=== PATIENT | female | born 2000 ===

== ENCOUNTER → 2022-12-09 | Outpatient (CLI) | payer OTHER | END | disposition home or self-care (01) | LOC: LAB 11:55 → LAB SHORT 11:55 | DX: Z34.03 Encounter for supervision of normal first pregnancy, third trimester (principal) | CPT/HCPCS: 87081; 87150 ==

== ENCOUNTER → 2022-12-26 | Outpatient (CLI) | payer OTHER ==
[2022-12-26 18:46] LABS: Protein, Urine Random <5.0 mg/dL (0.0-11.9); Protein/Creat Ratio, Ur Random Unable to Calculate
== END | disposition home or self-care (01) ==
LOC: LAB 14:58 → LAB SHORT 14:58
PROVIDERS: Family Medicine
DX: R03.0 Elevated blood-pressure reading, without diagnosis of hypertension (principal)
CPT/HCPCS: 82570; 84156

== ENCOUNTER 2023-01-03 14:58 | Inpatient (IN) | payer OTHER ==
[2023-01-03] VITALS (14 sets, daily range): BP systolic 123–156; BP diastolic 62–96
[~2023-01-03] VITALS: Ht 149.9 cm; Wt 72.8 kg
[2023-01-03 16:24] LABS: BASOPHILS ABSOLUTE AUTO 0.05 K/mm3 (0.00-0.23); BASOPHILS PERCENT AUTO 1 % (0-2); EOSINOPHILS ABSOLUTE AUTO 0.01 K/mm3 (0.00-0.68); EOSINOPHILS PERCENT AUTO 0 % (0-6); Hematocrit 31.4 % (33.0-51.0); Hemoglobin 10.2 g/dL (11.5-16.0); IMMATURE GRAN ABSOLUTE AUTO 0.02 K/mm3 (0.00-0.10); IMMATURE GRAN PERCENT AUTO 0 % (0-1); LYMPHOCYTES ABSOLUTE AUTO 1.72 K/mm3 (0.84-5.20); LYMPHOCYTES PERCENT AUTO 22 % (21-46); MONOCYTES ABSOLUTE AUTO 0.65 K/mm3 (0.16-1.47); MONOCYTES PERCENT AUTO 8 % (4-13); Mean Corpuscular HGB 26.8 pg (26.0-34.0); Mean Corpuscular HGB Conc 32.5 g/dL (31.5-36.5); Mean Corpuscular Volume 83 fL (80-100); Mean Platelet Volume 11.3 fL (9.1-12.4); NEUTROPHILS PERCENT AUTO 69 % (41-73); Platelet Count 151 K/mm3 (150-400); RDW Coefficient Variation 13.8 % (11.7-14.2); RDW Standard Deviation 40.5 fL (35.1-46.3); White Blood Cell Count 7.95 K/mm3 (4.00-11.30)
[2023-01-03] MEDS ORDERED: PRENATAL TABLE1 EAC2 PO (16:30)
[2023-01-03 16:35] LABS: Creatinine, Urine Random 45.9 mg/dL (27.00-270.00); Protein, Urine Random 39.1 mg/dL (0.0-11.9); Protein/Creat Ratio, Ur Random 0.9
[2023-01-03 16:53] LABS: Albumin, Blood 2.4 g/dL (3.4-5.0); Albumin/Globulin Ratio 0.6 (0.8-1.8); Bilirubin, Total 0.2 mg/dL (0.1-1.0); Bun/Creatinine Ratio 18.7 (12.0-20.0); Calcium, Blood 8.9 mg/dL (8.5-10.1); Creatinine, Blood 0.75 mg/dL (0.40-1.00); Potassium, Blood 3.8 mmol/L (3.5-5.5); Total Protein, Blood 6.4 g/dL (6.4-8.2)
[2023-01-04] VITALS (87 sets, daily range): BP systolic 68–211; BP diastolic 42–179
--- NOTE | 2023-01-04 10:07 | NUR ---
01/04/23 Ene Orta PT IN OR WHILE ACTIVELY SEIZING. EXTRA STAFF IN ROOM FOR ASSISTANCE. MOVED TO OR BED AND INTUBATED BY YUE WITH RCD.TAB ASSISTANCE. ICU STAFF IN HALLWAY WITH THE RAPID RESPONSE. VIABLE MALE BORN AT 0951 WITH RESCUSITATION TEAM AT [facility] WITH DR BIRCH. WEIGHT AND APGARS ON RECORD. CORD BLOOD AND CORD GASES GIVEN TO NASH RIVERS RN. PLACENTA SENT TO PATHOLOGY.
[2023-01-04 10:17] LABS: PCO2 Cord - Arterial 71.4 mmHg (40-50); pH Cord - Arterial 6.92 (7.28-7.35)
[2023-01-04 10:19] LABS: PO2 Cord - Venous 22.7 mmHg (28-32); pH Umbilical Cord - Venous 6.95 (7.26-7.35)
--- NOTE | 2023-01-04 10:44 | NUR ---
"Spiritual Care | Rapid response Pt. is in labor, and they take her into OR for an emergency . Staff requesated this aba tutor stay with Pts. SO (baby's father). Pts. mother is also present. Both are amharic speakers. Am able to communicate with Pts. mother as she knows some Japanese and this aba tutor knows some [place]. Through this communication rapport and trust are established. Baby is brought into the nursery, and I join the SO to visit his son. After Xrays are taken a blessing is given for the baby. Will follow up with the mother after she returns to room from PACU. Both Pts. mother and SO verbalize gratitude for the spiritual care visit."
--- NOTE | 2023-01-04 11:25 | NUR ---
CARE ASSUMPTION/MTP PT ARRIVED TO ICU DR. CLARK IN TH RM INITIATING THE MASSIVE TRANSFUSION PROTOCOL. PT AWAKE ON ARRIVAL, PALE COLD TO THE TOUCH BUT TALKING APPROPRIATELY W STAFF. DR. TURNER AT [facility] UPON ARRIVAL. PT HYPOTENSIVE ON ARRIVAL EXPELLING LARGE AMOUNTS OF BLOOD FROM VAGINA W FUNDAL MASSAGE BEING PERFORMED BY CARLOS A/ALEXANDRA FBP RN'S. PT RECIEVED 4 UNITS PRBC, 3 UNITS FFP, AND 1 UNIT PLATELETS. APPROX 1300 THE PT HAD A SEIZURE SO ATIVAN AND ADDITIONAL 2GM MAG GIVEN ENDING THE SEIZURE. MAG GTT RUNNING AT 50ML/HR. OXYTOCIN GTT BOLUSED PER DR. PARSONS. DONTA-SYNEPHRINE WAS ON PRIOR TO SEIZURE BUT TURNED OFF AFTR THE SEIZURE. PT'S BP REMAINED ELEVATED SO ESMOLOL GTT ORDERED. FAMILY AT BESIDE FOR MAJORITY OF THIS EVENT. PT ON RM AIR SINCE ARRIVAL TO ICU. PT CURRENTLY LYING IN BED MINIMALLY RESPONSIVE TO VOICE BUT DOES RESPOND TO DR. CLARK WHEN SPOKEN TO IN [place]. BP STABLE ON ESMOLOL GTT AT 100MCG/KG. MAG GTT RUNNING AT 50ML/HR. OXYTOCIN RUNNING AT 125 ML/HR. FBP PROVIDER JUWAN RADER AT BEDSIDE EVALUATING PT AND SPEAKING W FAMILY. LATRELL AT BEDSIDE. ADDITIONAL ORDERS FOR CRYOPECIPITATE AND LABS OBTAINED.
[2023-01-04 12:25] LABS: BASOPHILS ABSOLUTE AUTO 0.04 K/mm3 (0.00-0.23); BASOPHILS PERCENT AUTO 0 % (0-2); EOSINOPHILS ABSOLUTE AUTO 0.01 K/mm3 (0.00-0.68); EOSINOPHILS PERCENT AUTO 0 % (0-6); Hematocrit 21.2 % (33.0-51.0); Hemoglobin 6.7 g/dL (11.5-16.0); IMMATURE GRAN ABSOLUTE AUTO 0.13 K/mm3 (0.00-0.10); IMMATURE GRAN PERCENT AUTO 1 % (0-1); LYMPHOCYTES ABSOLUTE AUTO 0.95 K/mm3 (0.84-5.20); LYMPHOCYTES PERCENT AUTO 6 % (21-46); MONOCYTES ABSOLUTE AUTO 0.74 K/mm3 (0.16-1.47); MONOCYTES PERCENT AUTO 4 % (4-13); Mean Corpuscular HGB 27.2 pg (26.0-34.0); Mean Corpuscular HGB Conc 31.6 g/dL (31.5-36.5); Mean Corpuscular Volume 86 fL (80-100); Mean Platelet Volume 10.6 fL (9.1-12.4); NEUTROPHILS ABSOLUTE AUTO 14.86 K/mm3 (1.96-9.15); NEUTROPHILS PERCENT AUTO 89 % (41-73); NRBC ABSOLUTE 0.07 K/mm3 (0.00-0.02); NRBC Auto 0.4 /100 WBC (0.0-0.2); Platelet Count 121 K/mm3 (150-400); RDW Standard Deviation 43.4 fL (35.1-46.3); Red Blood Cell Count 2.46 M/mm3 (3.80-5.20); White Blood Cell Count 16.73 K/mm3 (4.00-11.30)
[2023-01-04 12:40] LABS: Albumin, Blood 1.5 g/dL (3.4-5.0); Albumin/Globulin Ratio 0.6 (0.8-1.8); Bilirubin, Total 0.7 mg/dL (0.1-1.0); Calcium, Blood 8.2 mg/dL (8.5-10.1); Creatinine, Blood 1.36 mg/dL (0.40-1.00); Globulin, Blood 2.6 g/dL (2.2-4.0)
[2023-01-04 12:41] LABS: Total Protein, Blood 4.1 g/dL (6.4-8.2)
--- NOTE | 2023-01-04 13:29 | NUR ---
GOLD COLORED NECKLACE REMOVED FROM PATIENT AND HANDED TO THE IN THE HALLWAY OUTSIDE OF THE ICU.
[2023-01-04 13:49] LABS: International Normalized Ratio 2.15; Prothrombin Time Results 21.6 Sec (9.7-11.5)
[2023-01-04 14:05] LABS: Fibrinogen <50 mg/dL (170-430)
--- NOTE | 2023-01-04 14:09 | NUR ---
ICU KVOSS AND [employer] AT BEDSIDE IN ICU WITH DR POWERS FOR FUNDAL CHECKS. LOTS OF ICU STAFF IN ROOM FOR VITALS AND BLOOD PRODUCTS. NEW BAG OF PITOCIN HUNG AT 1140 PER WONDERGABRIEL. METHERGINE 0.2 IN LEFT LEG PER DR POWERS SINCE BP WAS VERY LOW. 1230 MODERATE BLEEDING UTERUS +2 TXA ORDERED BY PRIYA.
--- NOTE | 2023-01-04 14:20 | NUR ---
"Spiritual Care | Nurse request - family support Pt. is in ICU and being treated for seizures. Pt. SO and Pts. mother are present. SO disaplays evidence of emotion. Give comfort and support to the family. Stayed with family outside the ICU at Pt. had additional ports established. While in the waiting area. [facility] flight ambulance arrived to transport Pts. baby (Calvin) to [place]. Assisted SO (father of baby) as he prepared to go to [place] to be near baby Calvin. Walk SO to [employer] to warehouse order picker food and his water bottle. Assisted SO to the nursery were SO saw baby in the transport crib. Walked SO to the parking lot and his vehicle. Returned to ICU9 and brought Pts. mother to bedside. Stayed with mother until medical staff stepped out, and then prayed for the Pt. Mother verbalized appreciation for the spiritual care she has received. Will remain available to Pt. and family."
--- NOTE | 2023-01-04 14:33 | NUR ---
FUNDUS RECHECK FUNDAL MASSAGE COMPLETED, UTERUS STILL FEELS SOFT BUT NO OBVIOUS BLEEDING NOTED. UPDATED FBP RN. PLAN TO REASSESS IN 30 MINUTES. PRIMARY RN AWARE.
--- NOTE | 2023-01-04 15:29 | NUR ---
UPDATE PT FATHER AND MOTHER AT BEDSIDE. FATHER OF THE PT HAD C/O NOT FELING WELL, BECAME DIAPHORETIC, AND LOST CONSCIOUSNESS WHILE SITTING IN THE CHAIR. THE PT'S FATHER AWOKE MOMENTS LATER AND WAS TAKEN TO THE ER VIA GURME[facility]KSHI BY KRYSTINA SANCHEZ RN GROUP WORK PROGRAM AIDE.
--- NOTE | 2023-01-04 15:51 | NUR ---
FUNDAL MASSAGE FUNDAL MASSAGE PRFORMED BY EDUARDO GOINS RESULTING IN SMALL AMOUT OF THIN RED BLOOD FROM THE PT'S VAGINA. PITOCIN GTT RUNNING AT 125ML/HR.
[2023-01-04 17:09] LABS: Hematocrit 21.5 % (33.0-51.0); Hemoglobin 7.3 g/dL (11.5-16.0); Mean Corpuscular HGB 28.5 pg (26.0-34.0); Mean Corpuscular Volume 84 fL (80-100); NRBC ABSOLUTE 0.09 K/mm3 (0.00-0.02); NRBC Auto 0.6 /100 WBC (0.0-0.2); RDW Coefficient Variation 14.7 % (11.7-14.2); RDW Standard Deviation 45.2 fL (35.1-46.3); Red Blood Cell Count 2.56 M/mm3 (3.80-5.20); White Blood Cell Count 14.33 K/mm3 (4.00-11.30)
[2023-01-04 17:24] LABS: International Normalized Ratio 1.17
[2023-01-04 17:30] LABS: Prothrombin Time Results 12.2 Sec (9.7-11.5)
[2023-01-04 17:34] LABS: Platelet Count 56 K/mm3 (150-400)
[2023-01-04 18:09] LABS: Albumin, Blood 1.9 g/dL (3.4-5.0); Albumin/Globulin Ratio 0.7 (0.8-1.8); Bilirubin, Total 1.2 mg/dL (0.1-1.0); Bun/Creatinine Ratio 14.1 (12.0-20.0); Creatinine, Blood 1.56 mg/dL (0.40-1.00); Globulin, Blood 2.8 g/dL (2.2-4.0); Magnesium, Blood 8.1 mg/dL (1.6-2.4); Potassium, Blood 4.1 mmol/L (3.5-5.5); Total Protein, Blood 4.7 g/dL (6.4-8.2)
--- NOTE | 2023-01-04 18:15 | NUR ---
DAY SHIFT SUMMARY SINCE RECIEVING THE MASSIVE TRANSFUSION PROTOCOL, SEE PREVIOUS NOTE, THE PT HAS BEEN VERY DROWSY BUT AWAKENING TO SPEECH AND COMMUNICATING APPROPRIATELY W STAFF. PT HAS REMAINED ON THE ESMOLOL GTT TO KEEP SBP <160 AND DBP <[address] CLARK. PT HAD ONE SMALL AMOUNT OF BLOOD W FUNDAL MASSAGE BUT LAST TWO FUNDAL MASSAGES HAVE RESULTED IN NO BLOOD. MONITOR HAS SHOWN SR IN THE 90'S W THE OCCASIONAL PVC. SPO2 >90% ON RM AIR THOUGH THE PT DID REQUIRE 2L NC BREIFLY WHILE ASLEEP BUT AWOKE AND HAS REMAINED ON RM AIR. PT HAD CRITICAL MAGNESIUM LEVEL OF 8.1, DR. CLARK NOTIFIED AND MAGNESIUM GTT TURNED DOWN TO ONE GM/HR. DEEP TENDON REFLEXES INTACT. CURRENTLY THE PT IS AWAKE AND SITTING UPRIGHT IN BED WITH BOTH PARENTS AT BEDSIDE. PT TOLERATING PO FLUIDS. PT DENIES ANY NAUSEA AND ONLY PAIN IN HER ABDOMEN W MOVEMENT. PT HAS WOUND VAC ON ABDOMEN PLACED AFTER HER . PT HAS ESMOLOL GTT RUNNING AT 125MCG/KG/MIN. PITOCIN AT 125ML/HR. MAGNESIUM GTT AT 1 GM/HR. PT HAD PEAK TEMP OF 100.2 THIS SHIFT. SCD'S ON BLE. PT HAS NEW PICC LINE IN RUE W RESIDUAL BLOOD FROM ORIGINAL PLACEMENT DURING THE MTP. PT HAS BLOOD/SWOLLEN TONGUE WHERE SHE BIT IT DURING HER SECOND SEIZURE. WILL REPORT TO ONCOMING RN. 125ML/HR
--- NOTE | 2023-01-04 19:50 | NUR ---
ASSESSMENT/ASSUMED CARE PT LAYING IN BED WITH MOTHER AT BEDSIDE. PT OPENS EYES AND ANSWERS QUESTIONS TO VERBAL RESPONSE. REPORTS ABD PAIN 1/10 WITH MOVEMENT ONLY. LUNGS CLEAR ON ROOMAIR. RESP EVEN AND NONLABORED. HEART RATE REGULAR IN THE 90'S. BP STABLE ON ESMOLOL AT 125 MCQ/KG/MIN TO KEEP SBP <160 AND DBP <90. DONTA SYNEPHRINE ON STANDBY. MAG GTT AT 25 ML/HR AND OXYTOCIN AT 125 ML/HR. ABD SOFT AND TENDER TO PALPATION. WOUND VAC TO LOWER ABD WITH GOOD SUCTION. SMALL AMT BLEEDING NOTED TO DRSG. LINARES CATH PATENT DRAINING MAEVE URINE. PT MOVING EXT BUT WEAK. 1+ LOWER EXT EDEMA NOTED. IV 18G TO LEFT WRIST SALINE LOCKED, SITE WITH SMALL AMT OF BLOODY DRAINAGE NOTED. PICC LINE TO RIGHT UPPER ARM DRSG INTACT, SMALL AMT BLOODY DRAINAGE NOTED. NO VAGINAL DISCHARGE NOTED AT THIS TIME. FAMILY RN TO COME AND DO FUNDAL MESSAGE. PT RESTING QUIETLY.
--- NOTE | 2023-01-04 20:20 | NUR ---
FUNDAL MASSAGE GRACY GOINS FROM FAMILY DID FUNDAL MASSAGE WITH NO BLOOD CLOTS AND MIN AMT DRAINAGE
[2023-01-04 21:21] LABS: Hematocrit 18.4 % (33.0-51.0); Hemoglobin 6.4 g/dL (11.5-16.0)
--- NOTE | 2023-01-04 22:28 | NUR ---
CALL TO MD CALL TO DR CLARK WITH CRITICAL MAG LEVEL. STOPPED MAG GTT. FIRST UNIT PRBC STARTED. FAMILY RN UP TO DO FUNDAL MASSAGE. PT PLACED ON 2 LITERS NC DUE TO SPO2 DOWN TO 88% WHILE SLEEPING.
[2023-01-05] VITALS (95 sets, daily range): BP systolic 100–151; BP diastolic 66–101
--- NOTE | 2023-01-05 01:07 | NUR ---
HEADACHE/BLURRY VISION PT C/O HEADACHE 11/14 STATES,"IT IS MUCH BETTER THAN YESTERDAY OR EVEN LAST NIGHT" MED WITH TYLENOL. PT STATES,"MY VISION IS STILL BLURRY. I CAN SEE EVERYTHING BUT IT IS BLURRY. IT IS BETTER THAN YESTERDAY AND NOT BLURRY NOW". ESMOLOL DOWN TO 50 AND SECOND UNIT PRBC INFUSING.
--- NOTE | 2023-01-05 02:13 | NUR ---
FUNDAL MASSAGE DONE. PT REPORTS HEADACHE IS GONE AND HER VISION IS MORE CLEAR.
--- NOTE | 2023-01-05 03:34 | NUR ---
SECOND UNIT OF PRBC DONE. PT SLEEPING.
[2023-01-05 04:50] LABS: Hematocrit 23.7 % (33.0-51.0); Hemoglobin 8.2 g/dL (11.5-16.0); Mean Corpuscular HGB 28.3 pg (26.0-34.0); Mean Corpuscular HGB Conc 34.6 g/dL (31.5-36.5); Mean Corpuscular Volume 82 fL (80-100); NRBC ABSOLUTE 0.04 K/mm3 (0.00-0.02); NRBC Auto 0.3 /100 WBC (0.0-0.2); RDW Coefficient Variation 15.2 % (11.7-14.2); RDW Standard Deviation 45.1 fL (35.1-46.3); White Blood Cell Count 13.54 K/mm3 (4.00-11.30)
[2023-01-05 04:57] LABS: Platelet Count 36 K/mm3 (150-400)
[2023-01-05 05:06] LABS: Prothrombin Time Results 10.5 Sec (9.7-11.5)
[2023-01-05 05:11] LABS: Albumin, Blood 1.8 g/dL (3.4-5.0); Albumin/Globulin Ratio 0.7 (0.8-1.8); Bilirubin, Total 0.5 mg/dL (0.1-1.0); Calcium, Blood 6.6 mg/dL (8.5-10.1); Creatinine, Blood 1.66 mg/dL (0.40-1.00); Globulin, Blood 2.7 g/dL (2.2-4.0); Phosphorus, Blood 4.2 mg/dL (2.5-4.9); Potassium, Blood 4.2 mmol/L (3.5-5.5); Total Protein, Blood 4.5 g/dL (6.4-8.2)
[2023-01-05 05:13] LABS: Magnesium, Blood 5.6 mg/dL (1.6-2.4)
--- NOTE | 2023-01-05 06:17 | NUR ---
SHIFT SUMMARY PT AWAKE TALKING WITH MOTHER. DENIES PAIN. ABLE TO MOVE SELF AROUND IN BED. PLT DOWN TO 36, ONE UNIT PLT STARTED. ESMOLOL TITRATED DOWN TO 25 MCQ/KG/MIN DURING THE NIGHT TO KEEP SBP <160 AND DBP <90. FUNDAL MASSAGE DONE Q2 HRS WITH MIN DRAINAGE DURING THE NIGHT AND NO CLOTS. PICC LINE DRSG CHANGED DURING THE NIGHT DUE TO OOZING AT SITE. MAG GTT AND OXYTOCIN GTT STOPPED DURING THE NIGHT. PT RECEIVED 2 UNITS PRBC DURING THE NIGHT FOR HGB BELOW 7.0. CURRENT H&H 8.2/23.7. REPORT TO ON COMING NURSE.
--- NOTE | 2023-01-05 07:17 | NUR ---
CARE ASSUMPTION DURING BEDSIDE SHIFT REPORT Thanh Hoover RN THE PT IS SLEEPING COMFORTABLY I BED IN NO DISTRESS, MOTHER OF PT AT BEDSIDE. PT HAS 2L NC IN NARES W SPO2 >92%. MONITOR SHOWING SR IN THE 80'S. PT HAS ESMOLOL GTT RUNNING AT 25 MCG/KG/MIN. BP WNL AND STABLE. CARE ASSUMED BY THIS RN AT THIS TIME.
--- NOTE | 2023-01-05 08:48 | NUR ---
FUNDAL MASSAGE FUNDAL MASSAG PERFORMED BY THIS RN WE CHARIS RADER AT THE BEDSIDE. NO BLOOD EXPELLEDFROM PT'S VAGINA W THIS INTERVENTION. DR. RADER INSTRUCTING THIS RN THAT FUNDAL MASSAGE CAN BE SCALED BACK TO BE PERFORMED Q4H. DR. RADER ASSESSED THE PT'S UTERUS VIA FUNDAL PRESSURE AND CONFIRMS THAT IT IS BELOW THE UMBILICUS.
--- NOTE | 2023-01-05 10:30 | NUR ---
Pt. is awake and welcomes my visit. Parents are at bedside. Pt. is pleasant as introductions are made and rapport is established. Prayed for Pt. Pt. and family verbalized gratitude for the spiritual care visit. Will continue to support the family.
[2023-01-05 12:08] LABS: BASOPHILS ABSOLUTE AUTO 0.02 K/mm3 (0.00-0.23); BASOPHILS PERCENT AUTO 0 % (0-2); EOSINOPHILS ABSOLUTE AUTO 0.01 K/mm3 (0.00-0.68); EOSINOPHILS PERCENT AUTO 0 % (0-6); Hematocrit 21.7 % (33.0-51.0); Hemoglobin 7.7 g/dL (11.5-16.0); IMMATURE GRAN ABSOLUTE AUTO 0.04 K/mm3 (0.00-0.10); IMMATURE GRAN PERCENT AUTO 0 % (0-1); LYMPHOCYTES ABSOLUTE AUTO 1.09 K/mm3 (0.84-5.20); LYMPHOCYTES PERCENT AUTO 9 % (21-46); MONOCYTES PERCENT AUTO 7 % (4-13); Mean Corpuscular HGB 28.8 pg (26.0-34.0); Mean Corpuscular HGB Conc 35.5 g/dL (31.5-36.5); Mean Corpuscular Volume 81 fL (80-100); Mean Platelet Volume 11.6 fL (9.1-12.4); NEUTROPHILS PERCENT AUTO 84 % (41-73); NRBC ABSOLUTE 0.05 K/mm3 (0.00-0.02); NRBC Auto 0.4 /100 WBC (0.0-0.2); Platelet Count 52 K/mm3 (150-400); RDW Coefficient Variation 15.3 % (11.7-14.2); RDW Standard Deviation 45.4 fL (35.1-46.3); Red Blood Cell Count 2.67 M/mm3 (3.80-5.20); White Blood Cell Count 12.56 K/mm3 (4.00-11.30)
--- NOTE | 2023-01-05 12:25 | NUR ---
UPDATE WHILE BEING BOOSTED IN BED THE PT REPORTED BLURY VISION. BP AND HR TRENDING UP. DR. WHARTON NOTIFIED AND ESMOLOL GTT RESTARTED.
[2023-01-05 12:27] LABS: Bun/Creatinine Ratio 13.5 (12.0-20.0); Creatinine, Blood 1.56 mg/dL (0.40-1.00); Magnesium, Blood 4.6 mg/dL (1.6-2.4); Potassium, Blood 3.7 mmol/L (3.5-5.5)
[2023-01-05 12:57] LABS: International Normalized Ratio 0.98; Prothrombin Time Results 10.3 Sec (9.7-11.5)
--- NOTE | 2023-01-05 15:33 | NUR ---
YEIMI POWERS AND DR. WHARTON AT BEDSIDE SPEAKING WITH THE PT. DR. POWERS NOTIFIED OF PT'S ABDOMEN BEING MORE DISTENDED, VERBAL ORDER FOR SIMETHACONE GIVEN. DR. POWERS TELLING THIS RN THAT FUNDAL MASSAGE COULD BE DONE ONCE A SHIFT IF NO BLEEDING IS NOTED. DR. WHARTON NOTIFYING THIS RN THAT SHE WILL BE PLACING AN ORDER FOR A MAGNESIUM GTT.
[2023-01-05 16:23] LABS: Hematocrit 22.1 % (33.0-51.0); Hemoglobin 7.9 g/dL (11.5-16.0); Mean Corpuscular HGB 29.2 pg (26.0-34.0); Mean Corpuscular HGB Conc 35.7 g/dL (31.5-36.5); Mean Corpuscular Volume 82 fL (80-100); Mean Platelet Volume 10.3 fL (9.1-12.4); NRBC ABSOLUTE 0.07 K/mm3 (0.00-0.02); NRBC Auto 0.5 /100 WBC (0.0-0.2); RDW Coefficient Variation 15.6 % (11.7-14.2); RDW Standard Deviation 45.5 fL (35.1-46.3); Red Blood Cell Count 2.71 M/mm3 (3.80-5.20); White Blood Cell Count 13.16 K/mm3 (4.00-11.30)
[2023-01-05 16:41] LABS: Platelet Count 48 K/mm3 (150-400)
--- NOTE | 2023-01-05 17:13 | NUR ---
LATE ENTRY NOTES 01/04/23 During pushing there was a severe range blood pressure of 211/98 at 0854 noted that RN attempted to repeat multiple times in next 15-20 minutes. Pt was janay very frequently and had begun pushing around the same time. BP occured in middle of 2 uc's about 90sec apart. With each attempt to repeat BP pt was either pushing and janay and RN was unable to obtain repeat blood pressure prior to pt having seizure. 01/04/23 [id number] Assisted BRISEIDA Medina, Dr Cantor and Dr. Pedraza with pt transport to ICU following CS and pt not waking up well from general anesthesia. Remained at pt bedside while ICU team and physician were assessing and caring for pt to stablize blood pressures. remained at bedside mostly to assist with fundal massage and demonstrate to ICU staff how to and how often to perform massage. While in ICU, this RN performed multiple fundal massages that resulted in moderate to large expressions of blood. Dr. Pedraza was at bedside entire time and was giving orders for additional medications for hemmorhage, including pitocin, methergine and TXA. ICU staff assumed rest of care and felt comfortable with post fundal care at 1350, FBP rn's return to unit for remainder of shift.
--- NOTE | 2023-01-05 18:35 | NUR ---
DAYSHIFT SUMMARY PT HAS BEEN ALERT AND ORIENTED COMMUNICATING APPROPRIATELY THIS SHIFT. PT HAS HAD MINIMAL BLEEDING THIS SHIFT REQUIRING TWO PAD CHANGES, THE FIRST ONE WEIGHED 58 GRAMS, THE SECOND WAS 92 GRAMS. THE SECOND PAD THAT HAD MORE BLEEDING WAS AFTER THE PT HAD BEEN UP AND TRANSFERING FROM BED TO CHAIR AND FROM CHAIR TO THE BED. BLOOD IN THE PADS IS PINK W NO CLOTS. NO BLEEDING W FUNDAL MASSAGE THIS SHIFT. WONDERLY AT BEDSIDE TWICE THIS SHIFT RECOMMENDING TO RESTART MAGNESIUM GTT AND THAT THE FUNDAL MASSAGE COULD BE PERFORMED ONCE A SHIFT. PT PLACED BACK ON ESMOLOL GTT AT 25MCG/KG/MIN THIS SHIFT THE PT'S HR AND BP WAS TRENDING UP AND THE PT HAD C/O BLURRY VISION WHEN BEING MOVED IN THE BED. MAGNESIUM GTT RESTARTED THIS SHIFT AND IS RUNNING AT 2 GM/HR. NO BLOOD PRODUCTS GIVEN THIS SHIFT. PT HAS REMAINED ON RM AIR THIS SHIFT W SPO2 >92%. PT AFEBRILE THIS SHIFT. PT HAS LINARES CATHETER THAT IS PATENT AND DRAINED >2100ML CLEAR YELLOW URINE THIS SHIFT. PT HAS TOLERATED PO INTAKE THIS SHIFT ADVANCED TO A FULL LIQUID DIET THIS SHIFT. PT'S ABDOMEN MUCH MORE DISTENDED THIS SHIFT, DR. WHARTON AND WONDERLY NOTIFIED. WONDERLY ASSESSED THE PT'S ABDOMEN AND STATED THAT HE BELIEVES IT IS GAS, SIMETHICONE ORDERED AND GIVEN. PT HAS DENIED ANY PAIN EXCEPT W MOVEMENT AT INCISION. THE PT HAS DENIED ANY NAUSEA THIS SHIFT. NO BOWEL MOVEMENTS THIS SHIFT. PT'S MOTHER AT BEDSIDE ALL SHIFT. MONITOR SHOWING SR IN THE 90'S THIS SHIFT. WILL REPORT TO ONCOMING RN.
[2023-01-06] VITALS (87 sets, daily range): BP systolic 106–145; BP diastolic 64–102
[2023-01-06 04:29] LABS: BASOPHILS ABSOLUTE AUTO 0.03 K/mm3 (0.00-0.23); BASOPHILS PERCENT AUTO 0 % (0-2); EOSINOPHILS ABSOLUTE AUTO 0.01 K/mm3 (0.00-0.68); EOSINOPHILS PERCENT AUTO 0 % (0-6); Hematocrit 21.6 % (33.0-51.0); Hemoglobin 7.5 g/dL (11.5-16.0); IMMATURE GRAN ABSOLUTE AUTO 0.13 K/mm3 (0.00-0.10); IMMATURE GRAN PERCENT AUTO 1 % (0-1); LYMPHOCYTES ABSOLUTE AUTO 1.58 K/mm3 (0.84-5.20); LYMPHOCYTES PERCENT AUTO 10 % (21-46); MONOCYTES ABSOLUTE AUTO 1.08 K/mm3 (0.16-1.47); MONOCYTES PERCENT AUTO 7 % (4-13); Mean Corpuscular HGB 28.8 pg (26.0-34.0); Mean Corpuscular HGB Conc 34.7 g/dL (31.5-36.5); Mean Corpuscular Volume 83 fL (80-100); NEUTROPHILS ABSOLUTE AUTO 12.45 K/mm3 (1.96-9.15); NEUTROPHILS PERCENT AUTO 81 % (41-73); NRBC ABSOLUTE 0.04 K/mm3 (0.00-0.02); NRBC Auto 0.3 /100 WBC (0.0-0.2); RDW Coefficient Variation 15.7 % (11.7-14.2); RDW Standard Deviation 47.9 fL (35.1-46.3); White Blood Cell Count 15.28 K/mm3 (4.00-11.30)
[2023-01-06 04:40] LABS: International Normalized Ratio 0.91; Prothrombin Time Results 9.6 Sec (9.7-11.5)
[2023-01-06 05:36] LABS: Platelet Count 44 K/mm3 (150-400)
[2023-01-06 05:57] LABS: Albumin, Blood 1.8 g/dL (3.4-5.0); Albumin/Globulin Ratio 0.6 (0.8-1.8); Bilirubin, Total 0.4 mg/dL (0.1-1.0); Bun/Creatinine Ratio 13.7 (12.0-20.0); Calcium, Blood 6.9 mg/dL (8.5-10.1); Creatinine, Blood 1.17 mg/dL (0.40-1.00); Globulin, Blood 2.9 g/dL (2.2-4.0); Phosphorus, Blood 4.2 mg/dL (2.5-4.9); Total Protein, Blood 4.7 g/dL (6.4-8.2)
--- NOTE | 2023-01-06 07:15 | NUR ---
CARE ASSUMPTION DURING BEDSIDE SHIFT REPORT W FELICIA GOINS THE PT IS SLEEPING COMFORTABLY IN BED ON RM AIR. MONITOR SHOWING SR IN THE 70'S. BP WNL ON THE ESMOLOL GTT AT 25MCG/KG/MIN. MAGNESIUM GTT RUNNING AT 1 MG/HR. PT AWAKENING TO VOICE AND COMMUNICATING W STAFF APPROPRIARTELY. THE PT DENIES ANY PAIN OR NAUSEA. THE PT DENIES ANY BLURRY VISION AT REST BUT DOES REPORT BLURRY VISION WHEN FOLLOWING MY PEN FROM SIDE TO SIDE. SIGNIFICANT NYSTAGMUS NOTED WHEN PT LOOKING TO THE SIDE W JUST HER EYES AND HEAD IS STATIONARY, DR. WHARTON NOTIFIED. PT'S MOTHER AND AUNT ARE AT THE BEDSIDE. PT DENIES ANY FURTHER NEEDS AT THIS TIME.
--- NOTE | 2023-01-06 07:43 | NUR ---
SHIFT SUMMARY: PT WAS ABLE TO SLEEP FOR MAJORITY OF THE NIGHT. NO SIGNIFICANT PAIN COMPLAINTS EXCEPT FOR WHEN REPOSITIONING THERE IS PAIN IN LOWER ABD AROUND INCISION; PT MEDICATED WITH TYLENOL AND HELPED RESOLVE PAIN. PT REMAINS A&O X 4; FLAT AFFECT AND COOPERATIVE WITH CARE. PT ON RA WITH SPO2 94<, RR 18-20. SR ON MONITOR WITH HR 70-80'S, SBP 120'S; ESMOLOL GTT @ 25 MCG/KG/HR. PT HAD NO HEADACHES OR BLURRY VISION THIS SHIFT. MAGNESIUM GTT @ 1 GM/HR. PT ABD DISTENDED, SLIGHTLY TENDER IN LOWER QUADRANTS R/T INCISION. IFEOMA DRESSING IN PLACE OF INCISION WITH NO NEW DISCHARGE. FUNDAL MASSAGE CONDUCTED AT 2130; UTERUS FIRM AND SLIGHTLY BELOW UMBILICUS. SMALL VAGINAL BLEEDING NOTED ON PAD THIS MORNING. PT HAS 2+ EDMEA IN BLE WITH SCD'S IN PLACE AT THIS TIME. PT HAD 3 L URINE OUTPUT THIS SHIFT. PT HAS GOOD FLUID INTAKE BUT DIDN'T SEEM TO HAVE AN APPETITE. PT'S MOTHER AND OTHER FAMILY MEMBER SPENT THE NIGHT AND HELPED WITH PT CARE THROUGHOUT THE SHIFT. REPORT GIVEN TO BRISEIDA BOWMAN.
--- NOTE | 2023-01-06 11:23 | NUR ---
Pt. is resting but repsonds soon after I enter. Pts. parents are present and welcome my visit. Pt. is pleasant and mom has been at bedside throughout Pts. stay. Facilitate a short life review. Listen with a calming presence and establish rapport. Pt. displays evidence of being aware and engaged. Pryaed with Pt. and family. All verbalize gratitude for the spiritual care visit. Will remain available to Pt. and family.
--- NOTE | 2023-01-06 12:00 | NUR ---
UPDATE PT'S LINARES CATHETER REMOVED. PT ASSISTED FROM THE BED TO CHAIR USING A FWW. PT W SLOW/WEAK GAIT ABLE TO GET INTO THE CHAIR. PT REPORTING WORSENED BLURRY VISION WHEN UP, PROVIDER NOTIFIED.
--- NOTE | 2023-01-06 15:14 | NUR ---
UPDATE TJ RADER IN RM AT BEDSIDE SPEAKING W PT AND PT'S MOTHER. THIS RN UPDATING HER ON THE PT'S C/O BLURRY VISION.
--- NOTE | 2023-01-06 18:21 | NUR ---
DAYSHIFT SUMMARY PT HAS REMAINED ALERT AND ORIENTED THIS SHIFT COMMUNICATING APPROPRIATELY W STAFF. PT HAS HAD SMALL AMOUNTS OF BLEEDING WHEN ON THE TOILET BUT NO BLEEDING W FUNDAL MASSAGE OR WHILE LYING IN BED. PT HAS REMAINED ON RM AIR THIS SHIFT W SPO2 >92%. THE PT'S MONITOR HAS SHOWING SR 70'S-80'S THIS SHIFT W NEW ECTOPY HAVE PAC'S W OCCASIONAL PVC'S W ACTIVITY. PT AFEBRILE THIS SHIFT. PT CONTINUES TO REPORT VISUAL CHANGES W BLURRY VISION AND AN EPISODE OF SEEING "A PLANT" W HER EYES CLOSED, PT REPORTING THIS TO THIS RN AND JUWAN RADER. FUNDAL MASSAGE PERFORMED ONCE THIS SHIFT W NO BLEEDING, UTERUS IS FIRM, MIDLINE, AND BELOW THE UMBILICUS. PT HAD LINARES CATHETER REMOVED THIS SHIFT AND IS VOIDING WELL ON THE TOILET. NO BOWEL MOVEMENT THIS SHIFT BUT PT REPORTS BEING ABLE TO PASS GAS. ABDOMEN REMAINS DISTENDED BUT IS SOFT NONTENDER. PT'S WOUND VAC SHOWS NO S/S OF BLEEDING OR INFLAMMATION THIS SHIFT. PT UP AND AMBULATING SEVERAL TIMES THIS SHIFT IN HER RM W THE USE OF A FWW, PT REPORTS MILD DIZZINESS WHEN UP BUT IS ABLE TO MOVE W MINIMAL ASSISTANCE. PT GIVEN TYLENOL ONCE THIS SHIFT FOR PAIN AT INCISION LINE IN ABDOMEN. PT STARTED ON PO TRANDATE THIS SHIFT BUT ESMOLOL GTT REMAINS AT 50MCG/KG/MIN. MAGNESIUM GTT RUNNING AT 1MG/HR ALL SHIFT. PT'S MOTHER AT BEDSIDE ALL DAY. PT ADVANCED TO REGULAR DIET, PT TOLERATING THIS WELL THOUGH HER FOOD INTAKE REMAINS MINIMAL. WILL REPORT TO ONCOMING RN.
[2023-01-07] VITALS (42 sets, daily range): BP systolic 103–168; BP diastolic 63–98
[2023-01-07 03:34] LABS: BASOPHILS ABSOLUTE AUTO 0.03 K/mm3 (0.00-0.23); BASOPHILS PERCENT AUTO 0 % (0-2); EOSINOPHILS ABSOLUTE AUTO 0.03 K/mm3 (0.00-0.68); EOSINOPHILS PERCENT AUTO 0 % (0-6); Hematocrit 23.2 % (33.0-51.0); Hemoglobin 7.8 g/dL (11.5-16.0); IMMATURE GRAN ABSOLUTE AUTO 0.19 K/mm3 (0.00-0.10); IMMATURE GRAN PERCENT AUTO 1 % (0-1); LYMPHOCYTES ABSOLUTE AUTO 1.87 K/mm3 (0.84-5.20); LYMPHOCYTES PERCENT AUTO 10 % (21-46); MONOCYTES PERCENT AUTO 6 % (4-13); Mean Corpuscular HGB 28.4 pg (26.0-34.0); Mean Corpuscular HGB Conc 33.6 g/dL (31.5-36.5); Mean Corpuscular Volume 84 fL (80-100); Mean Platelet Volume 11.1 fL (9.1-12.4); NEUTROPHILS PERCENT AUTO 82 % (41-73); NRBC ABSOLUTE 0.04 K/mm3 (0.00-0.02); NRBC Auto 0.2 /100 WBC (0.0-0.2); Platelet Count 72 K/mm3 (150-400); RDW Coefficient Variation 15.7 % (11.7-14.2); RDW Standard Deviation 47.5 fL (35.1-46.3); Red Blood Cell Count 2.75 M/mm3 (3.80-5.20); White Blood Cell Count 17.92 K/mm3 (4.00-11.30)
[2023-01-07 03:47] LABS: International Normalized Ratio 0.88; Prothrombin Time Results 9.3 Sec (9.7-11.5)
[2023-01-07 04:03] LABS: Albumin/Globulin Ratio 0.6 (0.8-1.8); Bilirubin, Total 0.2 mg/dL (0.1-1.0); Bun/Creatinine Ratio 14.5 (12.0-20.0); Calcium, Blood 6.6 mg/dL (8.5-10.1); Creatinine, Blood 1.1 mg/dL (0.40-1.00); Globulin, Blood 3.1 g/dL (2.2-4.0); Potassium, Blood 4.2 mmol/L (3.5-5.5); Total Protein, Blood 5.1 g/dL (6.4-8.2)
[2023-01-07 04:04] LABS: Magnesium, Blood 6.8 mg/dL (1.6-2.4)
--- NOTE | 2023-01-07 06:09 | NUR ---
SHIFT SUMMARY: PT SLEPT FOR THE MAJORITY OF THE NIGHT. PT REMAINS A&O X 4, USING CALL LIGHT APPROPRIATELY. PT SR ON MONITOR WITH HR 70-80, SBP 120'S; ESMOLOL GTT PLACED ON SB @ 0300. PT ON RA WITH SPO2 96<, RR 16-18. PT ABD MODERATLY DISTENDED BUT TENDERNESS IMPROVING; NOTED TENDERNESS IN LOWER ABD OVER INCISION, PAIN 5/10 WITH MOVEMENT. UTERUS FIRM AND SLIGHTLY UNDER UMBILICUS. PT USING WALKER WITH SBA FOR CORDS TO AMBULATE FOR BED TO TOILET; PT GAIT STEADY. PT HAD 900 ML URINE OUTPUT THIS SHIFT. PT DID NOT HAVE A BOWEL MOVEMENT THIS SHIFT BUT IS PASSING MORE GAS. 1-2+ EDEMA BLE, SCD'S IN PLACE BILATERALLY. PT TOLERATING LIQUID PO INTAKE BUT DECREASED APPETITE NOTED. PT'S MOTHER SPENT THE NIGHT AND HAS BEEN HELPING WITH ALL PT CARE. BED LOWERED, CALL LIGHT IN REACH, WILL CONTINUE TO MONITOR UNTIL ONCOMING RN ARRIVES.
--- NOTE | 2023-01-07 12:00 | NUR ---
PT A/O X4. DISCOMFORT AT C SECTION SITE THIS AM, TYLENOL GIVEN WITH GOOD RESULTS. PT ABLE TO AMB IN ROOM WITH MINIMAL ASSIST AND FWW. CHANGED PAD ONCE WHICH HAD MOD AMT OF BLOOD, NO CLOTS. DENIES ANY VISIAL DISTURBANCES TODAY AND NO DIZZINESS. ESMOLOL HAS BEEN OFF SINCE CHRONOGRAPH OPERATOR. MAG GTT WAS STOPPED THIS AM. PT DOWNGRADED FROM ICU STATUS. TAKEN TO FBP 120 VIA W/C, NO SIGN OF DISTRESS PT LEAVES THE UNIT. FAMILY ACCOMPANIES PT.
[2023-01-08] VITALS (29 sets, daily range): BP systolic 125–181; BP diastolic 63–97
[2023-01-08 04:59] LABS: BASOPHILS ABSOLUTE AUTO 0.02 K/mm3 (0.00-0.23); BASOPHILS PERCENT AUTO 0 % (0-2); EOSINOPHILS ABSOLUTE AUTO 0.07 K/mm3 (0.00-0.68); EOSINOPHILS PERCENT AUTO 1 % (0-6); Hematocrit 21.4 % (33.0-51.0); Hemoglobin 7.1 g/dL (11.5-16.0); IMMATURE GRAN ABSOLUTE AUTO 0.17 K/mm3 (0.00-0.10); IMMATURE GRAN PERCENT AUTO 1 % (0-1); LYMPHOCYTES ABSOLUTE AUTO 1.91 K/mm3 (0.84-5.20); LYMPHOCYTES PERCENT AUTO 16 % (21-46); MONOCYTES ABSOLUTE AUTO 0.85 K/mm3 (0.16-1.47); MONOCYTES PERCENT AUTO 7 % (4-13); Mean Corpuscular HGB 28.9 pg (26.0-34.0); Mean Corpuscular HGB Conc 33.2 g/dL (31.5-36.5); Mean Corpuscular Volume 87 fL (80-100); Mean Platelet Volume 10.4 fL (9.1-12.4); NEUTROPHILS ABSOLUTE AUTO 8.97 K/mm3 (1.96-9.15); NEUTROPHILS PERCENT AUTO 75 % (41-73); NRBC ABSOLUTE 0.03 K/mm3 (0.00-0.02); NRBC Auto 0.3 /100 WBC (0.0-0.2); Platelet Count 89 K/mm3 (150-400); RDW Coefficient Variation 16.1 % (11.7-14.2); RDW Standard Deviation 49.3 fL (35.1-46.3); Red Blood Cell Count 2.46 M/mm3 (3.80-5.20); White Blood Cell Count 11.99 K/mm3 (4.00-11.30)
--- NOTE | 2023-01-08 05:01 | NUR ---
2119 Dr. Valencia notified of increased BP. Patient had a couple that were over 160 systolic. Recheck after each of those BPs was under 160 systolic. A one time order was received to administer Labetalol PO if BP eyad above 160/90 over night. Labetalol was administered at 2333. 0448 BP was 175/93. This was taken right after lab nic her blood. Monitor was set for BP to be rechecked in 10 minutes. Recheck BP at 0459 was 140/74.
[2023-01-08 05:40] LABS: Bun/Creatinine Ratio 26.3 (12.0-20.0); Calcium, Blood 7.4 mg/dL (8.5-10.1); Creatinine, Blood 0.87 mg/dL (0.40-1.00); Potassium, Blood 4.2 mmol/L (3.5-5.5)
[2023-01-08 05:42] LABS: Magnesium, Blood 3.2 mg/dL (1.6-2.4)
[2023-01-09] VITALS (9 sets, daily range): BP systolic 140–164; BP diastolic 77–94
[2023-01-09 05:38] LABS: BASOPHILS ABSOLUTE AUTO 0.04 K/mm3 (0.00-0.23); BASOPHILS PERCENT AUTO 0 % (0-2); EOSINOPHILS ABSOLUTE AUTO 0.06 K/mm3 (0.00-0.68); EOSINOPHILS PERCENT AUTO 0 % (0-6); Hematocrit 22.3 % (33.0-51.0); Hemoglobin 7.2 g/dL (11.5-16.0); IMMATURE GRAN ABSOLUTE AUTO 0.36 K/mm3 (0.00-0.10); IMMATURE GRAN PERCENT AUTO 3 % (0-1); LYMPHOCYTES ABSOLUTE AUTO 1.66 K/mm3 (0.84-5.20); LYMPHOCYTES PERCENT AUTO 12 % (21-46); MONOCYTES ABSOLUTE AUTO 0.98 K/mm3 (0.16-1.47); MONOCYTES PERCENT AUTO 7 % (4-13); Mean Corpuscular HGB 28.5 pg (26.0-34.0); Mean Corpuscular HGB Conc 32.3 g/dL (31.5-36.5); Mean Corpuscular Volume 88 fL (80-100); Mean Platelet Volume 10.9 fL (9.1-12.4); NEUTROPHILS ABSOLUTE AUTO 10.79 K/mm3 (1.96-9.15); NEUTROPHILS PERCENT AUTO 78 % (41-73); NRBC ABSOLUTE 0.06 K/mm3 (0.00-0.02); NRBC Auto 0.4 /100 WBC (0.0-0.2); Platelet Count 113 K/mm3 (150-400); RDW Coefficient Variation 16.4 % (11.7-14.2); RDW Standard Deviation 50.7 fL (35.1-46.3); Red Blood Cell Count 2.53 M/mm3 (3.80-5.20); White Blood Cell Count 13.89 K/mm3 (4.00-11.30)
[2023-01-09 05:51] LABS: Magnesium, Blood 1.9 mg/dL (1.6-2.4); Percent Saturation 11.3 % (15.0-50.0)
[2023-01-09 05:52] LABS: Albumin, Blood 2.2 g/dL (3.4-5.0); Albumin/Globulin Ratio 0.7 (0.8-1.8); Bilirubin, Total 0.4 mg/dL (0.1-1.0); Calcium, Blood 7.9 mg/dL (8.5-10.1); Creatinine, Blood 0.75 mg/dL (0.40-1.00); Globulin, Blood 3.2 g/dL (2.2-4.0); Potassium, Blood 4.6 mmol/L (3.5-5.5); Total Protein, Blood 5.4 g/dL (6.4-8.2)
[2023-01-09] MEDS ORDERED: NIFE30ER PO (14:17)
[2023-01-09] MEDS ORDERED: LABE200 PO (14:17)
--- NOTE | 2023-01-09 15:31 | NUR ---
D/C INSTRUCTIONS DISCUSSED AND SIGNED. D/C INSTRUCTIONS PROVIDED IN [place].
== END 2023-01-09 15:45 | disposition home or self-care (01) | DRG 787 ==
LOC: OBS 14:58 → BC 15:01 → OBS 15:16 → BC 15:17 → ICUW 15:17 → BC 19:18 → ICUW 01-04 12:10 → ICUE 01-05 15:40 → BC 01-07 12:00
PROVIDERS: Internal Medicine Critical Care Medicine; Obstetrics & Gynecology; ADMIT Registered Nurse Community Health
PROC: 02HV33Z Insertion of Infusion Device into Superior Vena Cava, Percutaneous Approach (ICD-10-PCS; 2023-01-03)
PROC: 10D00Z1 Extraction of Products of Conception, Low, Open Approach (ICD-10-PCS; 2023-01-04)
PROC: 4A033R1 Measurement of Arterial Saturation, Peripheral, Percutaneous Approach (ICD-10-PCS; 2023-01-04)
PROC: 30233N1 Transfusion of Nonautologous Red Blood Cells into Peripheral Vein, Percutaneous Approach (ICD-10-PCS; principal; 2023-01-05)
PROC: 30233N1 Transfusion of Nonautologous Red Blood Cells into Peripheral Vein, Percutaneous Approach (ICD-10-PCS; 2023-01-05)
DX: O13.4 Gestational [pregnancy-induced] hypertension without significant proteinuria, complicating childbirth (principal); N17.9 Acute kidney failure, unspecified; O26.833 Pregnancy related renal disease, third trimester; O76 Abnormality in fetal heart rate and rhythm complicating labor and delivery; O15.2 Eclampsia complicating the puerperium; O75.1 Shock during or following labor and delivery; O72.1 Other immediate postpartum hemorrhage; O62.1 Secondary uterine inertia; O72.3 Postpartum coagulation defects; O48.0 Post-term pregnancy; O67.8 Other intrapartum hemorrhage; Z3A.40 40 weeks gestation of pregnancy; Z67.40 Type O blood, Rh positive; Z37.0 Single live birth; Z91.014 Allergy to mammalian meats; Z79.899 Other long term (current) drug therapy
CPT/HCPCS: 36415; 36430; 36569; 71045; 80048; 80053; 82330; 82570; 82728; 82803; 83540; 83550; 83605; 83735; 84100; 84156; 85014; 85018; 85025; 85027; 85384; 85610; 85730; 86850; 86900; 86901; 86923; 88307; 94762; A9270; C1751; J0612; J0690; J1165; J2060; J2210; J2370; J2405; J2590; J2704; J2765; J3010; J3475; J7030; J7040; J7050; J7120; P9012; P9016; P9035; P9059

== ENCOUNTER → 2023-01-11 | Outpatient (CLI) | payer OTHER ==
[~2023-01-11] MED LIST: LABE200 PO; NIFE30ER PO; PRENATAL TABLE1 EAC2 PO
[2023-01-11 14:17] LABS: BASOPHILS ABSOLUTE AUTO 0.05 K/mm3 (0.00-0.23); BASOPHILS PERCENT AUTO 0 % (0-2); EOSINOPHILS ABSOLUTE AUTO 0.06 K/mm3 (0.00-0.68); EOSINOPHILS PERCENT AUTO 0 % (0-6); Hematocrit 26.1 % (33.0-51.0); Hemoglobin 8.4 g/dL (11.5-16.0); IMMATURE GRAN ABSOLUTE AUTO 0.46 K/mm3 (0.00-0.10); IMMATURE GRAN PERCENT AUTO 3 % (0-1); LYMPHOCYTES ABSOLUTE AUTO 1.67 K/mm3 (0.84-5.20); LYMPHOCYTES PERCENT AUTO 11 % (21-46); MONOCYTES ABSOLUTE AUTO 1.02 K/mm3 (0.16-1.47); MONOCYTES PERCENT AUTO 7 % (4-13); Mean Corpuscular HGB 28.7 pg (26.0-34.0); Mean Corpuscular HGB Conc 32.2 g/dL (31.5-36.5); Mean Corpuscular Volume 89 fL (80-100); Mean Platelet Volume 10.4 fL (9.1-12.4); NEUTROPHILS ABSOLUTE AUTO 12.04 K/mm3 (1.96-9.15); NEUTROPHILS PERCENT AUTO 79 % (41-73); NRBC ABSOLUTE 0.03 K/mm3 (0.00-0.02); NRBC Auto 0.2 /100 WBC (0.0-0.2); Platelet Count 213 K/mm3 (150-400); RDW Coefficient Variation 16.6 % (11.7-14.2); RDW Standard Deviation 53.1 fL (35.1-46.3); Red Blood Cell Count 2.93 M/mm3 (3.80-5.20)
[2023-01-11 14:28] LABS: Albumin, Blood 2.5 g/dL (3.4-5.0); Albumin/Globulin Ratio 0.6 (0.8-1.8); Bilirubin, Total 0.5 mg/dL (0.1-1.0); Bun/Creatinine Ratio 31.8 (12.0-20.0); Calcium, Blood 8.4 mg/dL (8.5-10.1); Creatinine, Blood 0.66 mg/dL (0.40-1.00); Globulin, Blood 3.9 g/dL (2.2-4.0); Percent Saturation 8.9 % (15.0-50.0); Potassium, Blood 4.7 mmol/L (3.5-5.5); Total Protein, Blood 6.4 g/dL (6.4-8.2)
== END | disposition home or self-care (01) ==
LOC: LAB SHORT 11:40 → LAB 11:40
PROVIDERS: Registered Nurse Community Health
DX: Z39.2 Encounter for routine postpartum follow-up (principal)
CPT/HCPCS: 80053; 82728; 83540; 83550; 85025

== ENCOUNTER → 2023-01-13 | Outpatient (CLI) | payer OTHER | END | disposition home or self-care (01) | LOC: LAB SHORT 16:55 → LAB 16:55 | DX: R10.2 Pelvic and perineal pain (principal) | CPT/HCPCS: 87086 ==

== ENCOUNTER → 2023-09-14 | Outpatient (CLI) | payer OTHER | LOC: LAB SHORT 18:39 → LAB 18:39 | DX: Z32.01 Encounter for pregnancy test, result positive (principal) | CPT/HCPCS: 84702 ==

== ENCOUNTER → 2024-03-18 | Outpatient (CLI) | payer OTHER ==
[~2024-03-18] MED LIST changes: +ASPIR 8181 M1 PO
[2024-03-18 17:31] LABS: BASOPHILS ABSOLUTE AUTO 0.04 K/mm3 (0.00-0.23); BASOPHILS PERCENT AUTO 1 % (0-2); EOSINOPHILS ABSOLUTE AUTO 0.06 K/mm3 (0.00-0.68); EOSINOPHILS PERCENT AUTO 1 % (0-6); Hemoglobin 13.6 g/dL (11.5-16.0); IMMATURE GRAN ABSOLUTE AUTO 0.02 K/mm3 (0.00-0.10); IMMATURE GRAN PERCENT AUTO 0 % (0-1); LYMPHOCYTES ABSOLUTE AUTO 1.94 K/mm3 (0.84-5.20); LYMPHOCYTES PERCENT AUTO 30 % (21-46); MONOCYTES ABSOLUTE AUTO 0.52 K/mm3 (0.16-1.47); MONOCYTES PERCENT AUTO 8 % (4-13); Mean Corpuscular HGB 30.2 pg (26.0-34.0); Mean Corpuscular HGB Conc 33.2 g/dL (31.5-36.5); Mean Corpuscular Volume 91 fL (80-100); NEUTROPHILS ABSOLUTE AUTO 3.81 K/mm3 (1.96-9.15); NEUTROPHILS PERCENT AUTO 60 % (41-73); Platelet Count 194 K/mm3 (150-400); RDW Coefficient Variation 12.4 % (11.7-14.2); RDW Standard Deviation 40.6 fL (35.1-46.3); Red Blood Cell Count 4.51 M/mm3 (3.80-5.20); White Blood Cell Count 6.39 K/mm3 (4.00-11.30)
[2024-03-18 20:58] LABS: Percent Saturation 28.2 % (15.0-50.0)
== END ==
LOC: LAB SHORT 15:03 → LAB 15:03
PROVIDERS: Family Medicine
DX: O99.019 Anemia complicating pregnancy, unspecified trimester (principal); D50.9 Iron deficiency anemia, unspecified
CPT/HCPCS: 82728; 83540; 83550; 85025